=== PATIENT | female | born 1965 | race Caucasian/White ===

== ENCOUNTER → 2017-12-04 | Outpatient (CLI) | payer BC ==
[~2017-12-04] MED LIST: COZAAR50 MG PO; CRANBERRY500 M3 PO; CRESTOR5 MG PO; DAILY MULTIPLE1 EACH PO; FISH OIL 1,0001 EAC7 PO; OMEPRAZOLE40 M1 PO; OXAYDO5 MG PO; PROBIOTIC1 EAC5 PO
== END | disposition home or self-care (01) ==
LOC: CDC 13:00
DX: Z01.810 Encounter for preprocedural cardiovascular examination (principal); R10.31 Right lower quadrant pain; K80.20 Calculus of gallbladder without cholecystitis without obstruction
CPT/HCPCS: 93000

== ENCOUNTER 2017-12-08 11:11 | Day surgery (SDC) | payer BC ==
[~2017-12-08] VITALS: Ht 170.2 cm; Wt 102.0 kg
[~2017-12-08 11:11] MED LIST changes: -OXAYDO5 MG PO
[2017-12-08 12:15] VITALS: BP 166/81
[2017-12-08] MEDS ORDERED: OXAYDO5 MG PO (17:11)
[2017-12-08 18:08] VITALS: BP 121/72
[2017-12-08 19:15] VITALS: BP 121/68
[2017-12-08 21:28] VITALS: BP 140/79
== END 2017-12-08 21:40 | disposition home or self-care (01) ==
LOC: SDC
PROC: 0FT44ZZ Resection of Gallbladder, Percutaneous Endoscopic Approach (ICD-10-PCS; principal; 2017-12-08)
DX: K80.10 Calculus of gallbladder with chronic cholecystitis without obstruction (principal); N30.20 Other chronic cystitis without hematuria; K21.9 Gastro-esophageal reflux disease without esophagitis; E78.1 Pure hyperglyceridemia; E78.00 Pure hypercholesterolemia, unspecified; I10 Essential (primary) hypertension; E66.01 Morbid (severe) obesity due to excess calories; Z68.35 Body mass index [BMI] 35.0-35.9, adult; M17.10 Unilateral primary osteoarthritis, unspecified knee; Z90.710 Acquired absence of both cervix and uterus; Z90.721 Acquired absence of ovaries, unilateral; Z82.49 Family history of ischemic heart disease and other diseases of the circulatory system; Z83.3 Family history of diabetes mellitus
CPT/HCPCS: 88304; J0131; J0330; J1100; J1170; J1885; J2250; J2405; J3010; J3370; Q0175